=== PATIENT | male | born 1925 | race Caucasian/White ===

== ENCOUNTER 2016-12-17 16:27 | Inpatient (IN) | payer MEDICARE ==
[~2016-12-17] VITALS: Ht 198.1 cm; Wt 70.1 kg
[~2016-12-17 16:27] MED LIST: ASPI-618 PO; Acetaminophen PO; Blood Sugar Diagnostic VI; CYAN10006 IM; DEXT50DI8 IV; Docusate Sodium PO; INSU100V28 SQ; INSU3INS6 SQ; ISOS30TA6 PO; MAGN400T6 PO; MULT-70 PO; PANT40TA2 PO; PIOG30TA2 PO; TAMS-3 PO
[2016-12-17 18:24] LABS: *BILIRUBIN,URIN NEGATIVE (NEGATIVE); *BLOOD, URINE 3+ (NEGATIVE); *CLARITY,URINE CLEAR (CLEAR); *COLOR,URINE YELLOW (YELLOW); *KETONES,URINE NEGATIVE (NEGATIVE); *PROTEIN,URINE TRACE (NEGATIVE); *UROBILINOGEN,URINE 0.2 E.U./dl (NORMAL); LEUKOCYTE ESTERASE ,URINE NEGATIVE (NEGATIVE); NITRITE, URINE NEGATIVE (NEGATIVE); PH,URINE 5.5 (5.0-8.0); UGLUCOSE NEGATIVE (NEGATIVE)
[2016-12-17 18:26] LABS: POTASSIUM 4.5 mmol/L (3.5-5.1)
[2016-12-17 18:31] LABS: CREATININE 1.9 mg/dL (0.6-1.3)
[2016-12-17 18:34] LABS: LACTIC ACID 1.9 mmol/L (0.4-2.0)
[2016-12-17 18:39] LABS: ALBUMIN 3.8 g/dL (3.4-5.0); BILIRUBIN,DIRECT 0.3 mg/dL (0.0-0.2); BILIRUBIN,TOTAL 1.1 mg/dL (0.2-1.0); TOTAL PROTEIN, SERUM 7.1 g/dL (6.4-8.2)
[2016-12-17 18:43] LABS: TROPONIN I 10.14 ng/mL (0.00-0.056)
[2016-12-17] MEDS ORDERED: ASPIRIN 325 MG TABLET PO ONE (19:00)
[2016-12-17 19:02] LABS: BACTERIA,URINE NONE SEEN /HPF (NONE SEEN); SQUAMOUS EPITHELIAL CELL,UR FEW /HPF (NONE SEEN)
[2016-12-17 19:07] LABS: HEMATOCRIT 34.6 % (40.0-50.0); HEMOGLOBIN 11.7 g/dL (14.0-18.0); MEAN CORPUSCULAR HEMOGLOBIN 32.9 uug (27.0-31.0); MEAN CORPUSCULAR HGB CONC 34 g/dL (32.0-37.0); MEAN CORPUSCULAR VOLUME 97.4 fL (82.0-92.0); PLATELET COUNT (AUTO) 277 K/uL (150-450); RED BLOOD CELL COUNT(AUTO) 3.56 MIL/uL (4.70-6.10); WHITE BLOOD COUNT (AUTO) 19.8 K/uL (4.0-11.2)
[2016-12-17 19:08] LABS: LYMPHOCYTES # (AUTO) 1.1 K/uL (0.8-4.8); LYMPHOCYTES % (AUTO) 5.7 % (20.5-51.5); MONOCYTES # (AUTO) 1.2 K/uL (0.1-1.30); MONOCYTES % (AUTO) 6.1 % (0.0-11.0); NEUTROPHILS # (AUTO) 17.5 K/uL (1.8-8.9); NEUTROPHILS % (AUTO) 88.2 % (38.5-71.5)
[2016-12-17] MEDS ORDERED: ASPIRIN 325 MG TABLET ONE (19:09)
[2016-12-17 19:32] LABS: NEUTROPHILS % (MANUAL) 0 % (42-75)
[2016-12-17] MEDS ORDERED: HEPARIN SODIUM,PORCINE 5,000 UNITS/ML VIAL IV PRN (20:45)
[2016-12-17] MEDS ORDERED: HEPARIN SODIUM,PORCINE 5,000 UNITS/ML VIAL ONE (21:11)
[2016-12-17 21:19] LABS: *OCCULT BLOOD STOOL NEGATIVE (NEGATIVE)
[2016-12-17 22:45] VITALS: BP 122/56
[2016-12-17 23:00] VITALS: BP 94/66
[2016-12-17] MEDS ORDERED: ONDANSETRON 4 MG/2 ML VIAL IV PRN (23:30)
[2016-12-17] MEDS ORDERED: FUROSEMIDE 40 MG/4 ML VIAL IV ONE (23:30)
[2016-12-17] MEDS ORDERED: ZOLPIDEM 5 MG TABLET PO PRN (23:30)
[2016-12-17] MEDS: HEPARIN/D5W DRIP 500 ML IV PRN (23:30)
[2016-12-17] MEDS ORDERED: POTASSIUM CHLORIDE 20 MEQ TAB.PRT.SR PO ONE (23:30)
[2016-12-17] MEDS ORDERED: DEXTROSE 50% 50 ML DISP.SYRIN IV PRN (23:45)
[2016-12-18] VITALS (24 sets, daily range): BP systolic 90–154; BP diastolic 33–83
[2016-12-18] MEDS ORDERED: HEPARIN/D5W DRIP 500 ML ONE
[2016-12-18 05:19] LABS: ALBUMIN 3.7 g/dL (3.4-5.0); BILIRUBIN,TOTAL 1.1 mg/dL (0.2-1.0); MAGNESIUM 1.8 mg/dL (1.8-2.4); PHOSPHOROUS 3.9 mg/dL (2.5-4.9); POTASSIUM 4.5 mmol/L (3.5-5.1)
[2016-12-18 05:22] LABS: CREATININE 2.2 mg/dL (0.6-1.3)
[2016-12-18 05:31] LABS: THYROID STIMULATING HORMONE 4.605 mIU/mL (0.358-3.740)
[2016-12-18 06:54] LABS: HEMATOCRIT 34.4 % (40.0-50.0); HEMOGLOBIN 11.6 g/dL (14.0-18.0); LYMPHOCYTES % (AUTO) 8.7 % (20.5-51.5); MEAN CORPUSCULAR HEMOGLOBIN 33.2 uug (27.0-31.0); MEAN CORPUSCULAR HGB CONC 34 g/dL (32.0-37.0); MEAN CORPUSCULAR VOLUME 98.6 fL (82.0-92.0); NEUTROPHILS % (AUTO) 84.8 % (38.5-71.5); PLATELET COUNT (AUTO) 302 K/uL (150-450); RED BLOOD CELL COUNT(AUTO) 3.49 MIL/uL (4.70-6.10); RED CELL DISTRIBUTION WIDTH 13.2 % (11.5-14.5); WHITE BLOOD COUNT (AUTO) 17.2 K/uL (4.0-11.2)
[2016-12-18 06:55] LABS: BASOPHILS % (AUTO) 0.1 % (0.0-2.0); LYMPHOCYTES # (AUTO) 1.5 K/uL (0.8-4.8); MONOCYTES # (AUTO) 1.1 K/uL (0.1-1.30); MONOCYTES % (AUTO) 6.4 % (0.0-11.0); NEUTROPHILS # (AUTO) 14.6 K/uL (1.8-8.9)
[2016-12-18 07:32] LABS: BAND % (MANUAL) 7 % (0-10); LYMPHOCYTES % (MANUAL) 5 % (20-40); MONOCYTES % (MANUAL) 8 % (2-10); NEUTROPHILS % (MANUAL) 80 % (42-75)
[2016-12-18 07:33] LABS: PLATELET ESTIMATE ADEQUATE
[2016-12-18] MEDS: BLOOD SUGAR DIAGNOSTIC 1 EACH STRIP VI SCH ×4 (07:33→21:41)
[2016-12-18] MEDS ORDERED: HEPARIN SODIUM,PORCINE 5,000 UNITS/ML VIAL IV PRN (07:45)
[2016-12-18] MEDS: INSULIN REGULAR, HUMAN 300 UNIT/3 ML VIAL SQ PRN ×3 (07:53→17:27)
[2016-12-18] MEDS: CARVEDILOL 6.25 MG TABLET PO SCH ×2 (07:56→17:33)
[2016-12-18] MEDS: ISOSORBIDE MONONITRATE 30 MG TAB.SR.24H PO SCH (08:00)
[2016-12-18] MEDS: ASPIRIN 81 MG TAB.CHEW PO SCH (08:01)
[2016-12-18] MEDS: TAMSULOSIN HCL 0.4 MG CAP.SR.24H PO SCH ×2 (08:01→21:36)
[2016-12-18] MEDS: IV NS 1000 ML 1,000 ML IV PRN (08:03)
[2016-12-18] MEDS: MORPHINE SULFATE 2 MG/1 ML DISP.SYRIN IV PRN (18:03)
[2016-12-18] MEDS: MAGNESIUM OXIDE 400 MG TABLET PO SCH (21:36)
[2016-12-18] MEDS: SIMVASTATIN 20 MG TABLET PO SCH (21:36)
[2016-12-19] VITALS (25 sets, daily range): BP systolic 92–145; BP diastolic 21–74
[2016-12-19] MEDS: HEPARIN/D5W DRIP 500 ML IV PRN (00:28)
[2016-12-19] MEDS: ACETAMINOPHEN 325 MG TABLET PO PRN (01:09)
[2016-12-19] MEDS: IV NS 1000 ML 1,000 ML IV PRN ×2 (02:35→17:10)
[2016-12-19 05:45] LABS: BASOPHILS # (AUTO) 0.1 K/uL (0.0-0.2); BASOPHILS % (AUTO) 0.5 % (0.0-2.0); EOSINOPHILS # (AUTO) 0.2 K/uL (0.0-0.7); EOSINOPHILS % (AUTO) 1.7 % (0.0-7.0); HEMATOCRIT 31.8 % (40.0-50.0); HEMOGLOBIN 10.9 g/dL (14.0-18.0); LYMPHOCYTES # (AUTO) 1.7 K/uL (0.8-4.8); LYMPHOCYTES % (AUTO) 14.6 % (20.5-51.5); MEAN CORPUSCULAR HEMOGLOBIN 33.1 uug (27.0-31.0); MEAN CORPUSCULAR HGB CONC 34 g/dL (32.0-37.0); MEAN CORPUSCULAR VOLUME 96.6 fL (82.0-92.0); MONOCYTES % (AUTO) 8.3 % (0.0-11.0); NEUTROPHILS # (AUTO) 8.8 K/uL (1.8-8.9); NEUTROPHILS % (AUTO) 74.9 % (38.5-71.5); PLATELET COUNT (AUTO) 249 K/uL (150-450); RED BLOOD CELL COUNT(AUTO) 3.29 MIL/uL (4.70-6.10); RED CELL DISTRIBUTION WIDTH 12.4 % (11.5-14.5); WHITE BLOOD COUNT (AUTO) 11.8 K/uL (4.0-11.2)
[2016-12-19 05:55] LABS: CALCIUM 8.3 mg/dL (8.5-10.1); MAGNESIUM 1.7 mg/dL (1.8-2.4); PHOSPHOROUS 3.1 mg/dL (2.5-4.9); POTASSIUM 4.1 mmol/L (3.5-5.1)
[2016-12-19 05:57] LABS: CREATININE 1.8 mg/dL (0.6-1.3)
[2016-12-19] MEDS: BLOOD SUGAR DIAGNOSTIC 1 EACH STRIP VI SCH ×4 (07:26→21:33)
[2016-12-19] MEDS: INSULIN REGULAR, HUMAN 300 UNIT/3 ML VIAL SQ PRN ×2 (07:28→11:39)
[2016-12-19] MEDS: CARVEDILOL 6.25 MG TABLET PO SCH ×2 (08:11→18:22)
[2016-12-19] MEDS: ASPIRIN 81 MG TAB.CHEW PO SCH (08:11)
[2016-12-19] MEDS: ISOSORBIDE MONONITRATE 30 MG TAB.SR.24H PO SCH (08:11)
[2016-12-19] MEDS: TAMSULOSIN HCL 0.4 MG CAP.SR.24H PO SCH ×2 (08:11→21:37)
[2016-12-19] MEDS: MORPHINE SULFATE 2 MG/1 ML DISP.SYRIN IV PRN ×2 (08:54→19:00)
[2016-12-19] MEDS ORDERED: MAGNESIUM SULFATE/D5W 100 ML IV SCH (09:30)
[2016-12-19] MEDS: PANTOPRAZOLE SODIUM 40 MG VIAL IV SCH (11:17)
[2016-12-19 11:36] LABS: *CREATININE,URINE 137.9 mg/dL (30-125)
[2016-12-19] MEDS: CLOPIDOGREL 75 MG TABLET PO SCH (12:23)
[2016-12-19] MEDS: QUETIAPINE FUMARATE 25 MG TABLET PO PRN (17:19)
[2016-12-19] MEDS: MAGNESIUM OXIDE 400 MG TABLET PO SCH (21:37)
[2016-12-19] MEDS: SIMVASTATIN 20 MG TABLET PO SCH (21:37)
[2016-12-19] MEDS: LORAZEPAM 2 MG/1 ML VIAL IV PRN (21:37)
[2016-12-20] VITALS (15 sets, daily range): BP systolic 106–131; BP diastolic 48–94
[2016-12-20] MEDS: IV NS 1000 ML 1,000 ML IV PRN (04:52)
[2016-12-20 05:18] LABS: BASOPHILS % (AUTO) 0.6 % (0.0-2.0); EOSINOPHILS # (AUTO) 0.3 K/uL (0.0-0.7); HEMATOCRIT 28.9 % (40.0-50.0); HEMOGLOBIN 9.6 g/dL (14.0-18.0); LYMPHOCYTES # (AUTO) 1.4 K/uL (0.8-4.8); LYMPHOCYTES % (AUTO) 17.5 % (20.5-51.5); MEAN CORPUSCULAR HEMOGLOBIN 32.5 uug (27.0-31.0); MEAN CORPUSCULAR HGB CONC 33 g/dL (32.0-37.0); MEAN CORPUSCULAR VOLUME 97.6 fL (82.0-92.0); MONOCYTES # (AUTO) 0.9 K/uL (0.1-1.30); MONOCYTES % (AUTO) 11.3 % (0.0-11.0); NEUTROPHILS # (AUTO) 5.3 K/uL (1.8-8.9); NEUTROPHILS % (AUTO) 66.6 % (38.5-71.5); PLATELET COUNT (AUTO) 231 K/uL (150-450); RED BLOOD CELL COUNT(AUTO) 2.96 MIL/uL (4.70-6.10); RED CELL DISTRIBUTION WIDTH 12.5 % (11.5-14.5); WHITE BLOOD COUNT (AUTO) 7.9 K/uL (4.0-11.2)
[2016-12-20 05:21] LABS: ALBUMIN 2.8 g/dL (3.4-5.0); BILIRUBIN,TOTAL 0.9 mg/dL (0.2-1.0); CALCIUM 7.9 mg/dL (8.5-10.1); CREATININE 1.3 mg/dL (0.6-1.3); MAGNESIUM 1.9 mg/dL (1.8-2.4); PHOSPHOROUS 3.1 mg/dL (2.5-4.9); TOTAL PROTEIN, SERUM 5.7 g/dL (6.4-8.2)
[2016-12-20] MEDS: BLOOD SUGAR DIAGNOSTIC 1 EACH STRIP VI SCH ×4 (07:34→23:10)
[2016-12-20] MEDS: CLOPIDOGREL 75 MG TABLET PO SCH (08:56)
[2016-12-20] MEDS: CARVEDILOL 6.25 MG TABLET PO SCH ×2 (08:57→17:34)
[2016-12-20] MEDS: PANTOPRAZOLE SODIUM 40 MG VIAL IV SCH (08:57)
[2016-12-20] MEDS: TAMSULOSIN HCL 0.4 MG CAP.SR.24H PO SCH ×2 (08:57→21:28)
[2016-12-20] MEDS: ASPIRIN 81 MG TAB.CHEW PO SCH (08:59)
[2016-12-20] MEDS: MORPHINE SULFATE 2 MG/1 ML DISP.SYRIN IV PRN (15:21)
[2016-12-20] MEDS: QUETIAPINE FUMARATE 25 MG TABLET PO PRN (15:21)
[2016-12-20] MEDS: INSULIN REGULAR, HUMAN 300 UNIT/3 ML VIAL SQ PRN (16:43)
[2016-12-20] MEDS: MAGNESIUM OXIDE 400 MG TABLET PO SCH (21:28)
[2016-12-20] MEDS: ACETAMINOPHEN 325 MG TABLET PO PRN (21:28)
[2016-12-20] MEDS: SIMVASTATIN 20 MG TABLET PO SCH (21:28)
[2016-12-20] MEDS: INSULIN REGULAR, HUMAN 300 UNITS/3 ML VIAL SQ PRN (23:13)
[2016-12-21 00:57] VITALS: BP 121/60
[2016-12-21] MEDS: LORAZEPAM 2 MG/1 ML VIAL IV PRN ×2 (03:29→23:25)
[2016-12-21 04:00] VITALS: BP 137/68
[2016-12-21 06:12] LABS: BASOPHILS % (AUTO) 0.5 % (0.0-2.0); EOSINOPHILS # (AUTO) 0.3 K/uL (0.0-0.7); EOSINOPHILS % (AUTO) 4.4 % (0.0-7.0); HEMATOCRIT 33.8 % (40.0-50.0); HEMOGLOBIN 11.3 g/dL (14.0-18.0); LYMPHOCYTES # (AUTO) 1.3 K/uL (0.8-4.8); LYMPHOCYTES % (AUTO) 17.1 % (20.5-51.5); MEAN CORPUSCULAR HEMOGLOBIN 32.8 uug (27.0-31.0); MEAN CORPUSCULAR HGB CONC 34 g/dL (32.0-37.0); MONOCYTES # (AUTO) 0.9 K/uL (0.1-1.30); PLATELET COUNT (AUTO) 240 K/uL (150-450); RED BLOOD CELL COUNT(AUTO) 3.45 MIL/uL (4.70-6.10); RED CELL DISTRIBUTION WIDTH 12.6 % (11.5-14.5); WHITE BLOOD COUNT (AUTO) 7.5 K/uL (4.0-11.2)
[2016-12-21] MEDS: PANTOPRAZOLE SODIUM 40 MG VIAL IV SCH ×2 (06:24→08:53)
[2016-12-21 06:31] LABS: ALBUMIN 2.8 g/dL (3.4-5.0); BILIRUBIN,TOTAL 0.7 mg/dL (0.2-1.0); CALCIUM 8.1 mg/dL (8.5-10.1); MAGNESIUM 1.8 mg/dL (1.8-2.4); PHOSPHOROUS 2.8 mg/dL (2.5-4.9); POTASSIUM 3.8 mmol/L (3.5-5.1); TOTAL PROTEIN, SERUM 6.1 g/dL (6.4-8.2)
[2016-12-21] MEDS: BLOOD SUGAR DIAGNOSTIC 1 EACH STRIP VI SCH ×4 (06:36→20:15)
[2016-12-21] MEDS: CLOPIDOGREL 75 MG TABLET PO SCH (08:53)
[2016-12-21] MEDS: ASPIRIN EC 81 MG TABLET.DR PO SCH (08:54)
[2016-12-21] MEDS: TAMSULOSIN HCL 0.4 MG CAP.SR.24H PO SCH ×2 (08:54→20:58)
[2016-12-21] MEDS: CARVEDILOL 6.25 MG TABLET PO SCH ×2 (08:55→16:52)
[2016-12-21] MEDS: INSULIN REGULAR, HUMAN 300 UNIT/3 ML VIAL SQ PRN (11:58)
[2016-12-21 11:59] VITALS: BP 119/62
[2016-12-21 15:43] VITALS: BP 131/63
[2016-12-21 20:00] VITALS: BP 120/60
[2016-12-21] MEDS: MAGNESIUM OXIDE 400 MG TABLET PO SCH (20:58)
[2016-12-21] MEDS: SIMVASTATIN 20 MG TABLET PO SCH (20:58)
[2016-12-21] MEDS: INSULIN REGULAR, HUMAN 300 UNITS/3 ML VIAL SQ PRN (21:36)
[2016-12-22 00:01] VITALS: BP 126/64
[2016-12-22 04:00] VITALS: BP 127/59
[2016-12-22] MEDS: QUETIAPINE FUMARATE 25 MG TABLET PO PRN ×2 (04:01→15:39)
[2016-12-22 06:00] LABS: BASOPHILS % (AUTO) 0.5 % (0.0-2.0); EOSINOPHILS # (AUTO) 0.3 K/uL (0.0-0.7); EOSINOPHILS % (AUTO) 2.9 % (0.0-7.0); HEMATOCRIT 32.5 % (40.0-50.0); HEMOGLOBIN 10.8 g/dL (14.0-18.0); LYMPHOCYTES # (AUTO) 1.2 K/uL (0.8-4.8); LYMPHOCYTES % (AUTO) 12.7 % (20.5-51.5); MEAN CORPUSCULAR HEMOGLOBIN 32.6 uug (27.0-31.0); MEAN CORPUSCULAR HGB CONC 33 g/dL (32.0-37.0); MEAN CORPUSCULAR VOLUME 97.9 fL (82.0-92.0); MONOCYTES # (AUTO) 0.8 K/uL (0.1-1.30); MONOCYTES % (AUTO) 8.6 % (0.0-11.0); NEUTROPHILS # (AUTO) 6.8 K/uL (1.8-8.9); NEUTROPHILS % (AUTO) 75.3 % (38.5-71.5); PLATELET COUNT (AUTO) 262 K/uL (150-450); RED BLOOD CELL COUNT(AUTO) 3.32 MIL/uL (4.70-6.10); RED CELL DISTRIBUTION WIDTH 12.2 % (11.5-14.5); WHITE BLOOD COUNT (AUTO) 9.1 K/uL (4.0-11.2)
[2016-12-22 06:12] LABS: CALCIUM 8.4 mg/dL (8.5-10.1); MAGNESIUM 1.5 mg/dL (1.8-2.4); PHOSPHOROUS 2.3 mg/dL (2.5-4.9); POTASSIUM 3.7 mmol/L (3.5-5.1)
[2016-12-22] MEDS: PANTOPRAZOLE SODIUM 40 MG TABLET.DR PO SCH (07:15)
[2016-12-22] MEDS: BLOOD SUGAR DIAGNOSTIC 1 EACH STRIP VI SCH ×4 (07:42→21:45)
[2016-12-22] MEDS: CARVEDILOL 6.25 MG TABLET PO SCH ×2 (08:00→17:42)
[2016-12-22] MEDS: TAMSULOSIN HCL 0.4 MG CAP.SR.24H PO SCH ×2 (08:10→21:43)
[2016-12-22] MEDS: CLOPIDOGREL 75 MG TABLET PO SCH (08:10)
[2016-12-22] MEDS: CYANOCOBALAMIN 1,000 MCG TABLET PO SCH (08:11)
[2016-12-22] MEDS: ASPIRIN EC 81 MG TABLET.DR PO SCH (08:11)
[2016-12-22] MEDS ORDERED: MAGNESIUM SULFATE/D5W 100 ML IV SCH (08:15)
[2016-12-22] MEDS: POTASSIUM PHOSPHATE MM 5 MMOL in IV DEXTROSE 5% 100 ML IV SCH ×2 (10:30→13:21)
[2016-12-22 11:30] VITALS: BP 130/63
[2016-12-22] MEDS: INSULIN REGULAR, HUMAN 300 UNIT/3 ML VIAL SQ PRN ×2 (12:10→16:56)
[2016-12-22 16:37] VITALS: BP 128/48
[2016-12-22 19:00] VITALS: BP 144/70
[2016-12-22] MEDS: MAGNESIUM OXIDE 400 MG TABLET PO SCH (21:43)
[2016-12-22] MEDS: SIMVASTATIN 20 MG TABLET PO SCH (21:43)
[2016-12-22] MEDS: ACETAMINOPHEN 325 MG TABLET PO PRN (21:48)
[2016-12-23] MEDS: QUETIAPINE FUMARATE 25 MG TABLET PO PRN (00:09)
[2016-12-23] MEDS ORDERED: CARV6.252 PO (00:10)
[2016-12-23] MEDS ORDERED: SIMV20TA6 PO (00:10)
[2016-12-23] MEDS ORDERED: QUET25TA PO (00:10)
[2016-12-23] MEDS ORDERED: TAMSULOSIN HCL 0.4 MG CAP.SR.24H PO ONE (00:30)
[2016-12-23] MEDS ORDERED: TAMSULOSIN HCL 0.4 MG CAP.SR.24H ONE (00:34)
[2016-12-23 04:00] VITALS: BP 137/67
[2016-12-23] MEDS: BLOOD SUGAR DIAGNOSTIC 1 EACH STRIP VI SCH ×4 (05:48→20:20)
[2016-12-23] MEDS: PANTOPRAZOLE SODIUM 40 MG TABLET.DR PO SCH (06:20)
[2016-12-23] MEDS: CARVEDILOL 6.25 MG TABLET PO SCH ×2 (08:13→17:15)
[2016-12-23] MEDS: CYANOCOBALAMIN 1,000 MCG TABLET PO SCH (08:14)
[2016-12-23] MEDS: CLOPIDOGREL 75 MG TABLET PO SCH (08:14)
[2016-12-23] MEDS: TAMSULOSIN HCL 0.4 MG CAP.SR.24H PO SCH ×2 (08:14→20:42)
[2016-12-23] MEDS: ASPIRIN EC 81 MG TABLET.DR PO SCH (08:14)
[2016-12-23] MEDS: INSULIN REGULAR, HUMAN 300 UNIT/3 ML VIAL SQ PRN ×4 (08:16→23:51)
[2016-12-23 12:10] VITALS: BP 110/51
[2016-12-23 16:00] VITALS: BP 131/73
[2016-12-23 20:00] VITALS: BP 130/67
[2016-12-23] MEDS: MAGNESIUM OXIDE 400 MG TABLET PO SCH (20:42)
[2016-12-23] MEDS: SIMVASTATIN 20 MG TABLET PO SCH (20:42)
[2016-12-24 04:42] VITALS: BP 127/63
[2016-12-24] MEDS: PANTOPRAZOLE SODIUM 40 MG TABLET.DR PO SCH (06:04)
[2016-12-24] MEDS: BLOOD SUGAR DIAGNOSTIC 1 EACH STRIP VI SCH ×4 (06:04→21:22)
[2016-12-24] MEDS: CARVEDILOL 6.25 MG TABLET PO SCH ×2 (08:00→17:55)
[2016-12-24] MEDS: CLOPIDOGREL 75 MG TABLET PO SCH (08:29)
[2016-12-24] MEDS: CYANOCOBALAMIN 1,000 MCG TABLET PO SCH (08:29)
[2016-12-24] MEDS: ASPIRIN EC 81 MG TABLET.DR PO SCH (08:30)
[2016-12-24] MEDS: TAMSULOSIN HCL 0.4 MG CAP.SR.24H PO SCH ×2 (08:31→21:22)
[2016-12-24] MEDS: INSULIN REGULAR, HUMAN 300 UNIT/3 ML VIAL SQ PRN ×2 (08:45→12:37)
[2016-12-24 12:08] VITALS: BP 123/59
[2016-12-24 15:56] VITALS: BP 117/61
[2016-12-24 20:00] VITALS: BP 110/68
[2016-12-24] MEDS: MAGNESIUM OXIDE 400 MG TABLET PO SCH (21:22)
[2016-12-24] MEDS: SIMVASTATIN 20 MG TABLET PO SCH (21:22)
[2016-12-24] MEDS: INSULIN REGULAR, HUMAN 300 UNITS/3 ML VIAL SQ PRN (21:24)
[2016-12-25 04:00] VITALS: BP 111/63
[2016-12-25] MEDS: BLOOD SUGAR DIAGNOSTIC 1 EACH STRIP VI SCH ×4 (06:22→21:05)
[2016-12-25] MEDS: PANTOPRAZOLE SODIUM 40 MG TABLET.DR PO SCH (06:22)
[2016-12-25 06:48] LABS: BASOPHILS % (AUTO) 0.2 % (0.0-2.0); EOSINOPHILS # (AUTO) 0.3 K/uL (0.0-0.7); EOSINOPHILS % (AUTO) 2.2 % (0.0-7.0); HEMATOCRIT 31.8 % (40.0-50.0); HEMOGLOBIN 11.1 g/dL (14.0-18.0); LYMPHOCYTES # (AUTO) 1.2 K/uL (0.8-4.8); LYMPHOCYTES % (AUTO) 9.9 % (20.5-51.5); MEAN CORPUSCULAR HEMOGLOBIN 34.3 uug (27.0-31.0); MEAN CORPUSCULAR HGB CONC 35 g/dL (32.0-37.0); MEAN CORPUSCULAR VOLUME 97.8 fL (82.0-92.0); MONOCYTES # (AUTO) 1.3 K/uL (0.1-1.30); MONOCYTES % (AUTO) 11.4 % (0.0-11.0); NEUTROPHILS % (AUTO) 76.3 % (38.5-71.5); PLATELET COUNT (AUTO) 299 K/uL (150-450); RED BLOOD CELL COUNT(AUTO) 3.25 MIL/uL (4.70-6.10); RED CELL DISTRIBUTION WIDTH 12.2 % (11.5-14.5); WHITE BLOOD COUNT (AUTO) 11.8 K/uL (4.0-11.2)
[2016-12-25] MEDS ORDERED: Z GUARD REMEDY PASTE 57 GM TUBE TOP PRN (07:15)
[2016-12-25 07:40] LABS: ALBUMIN 2.9 g/dL (3.4-5.0); BILIRUBIN,TOTAL 0.7 mg/dL (0.2-1.0); CALCIUM 8.5 mg/dL (8.5-10.1); MAGNESIUM 1.5 mg/dL (1.8-2.4); PHOSPHOROUS 3.5 mg/dL (2.5-4.9); POTASSIUM 3.9 mmol/L (3.5-5.1); TOTAL PROTEIN, SERUM 6.3 g/dL (6.4-8.2)
[2016-12-25] MEDS: INSULIN REGULAR, HUMAN 300 UNIT/3 ML VIAL SQ PRN ×4 (07:42→20:54)
[2016-12-25] MEDS: CARVEDILOL 6.25 MG TABLET PO SCH ×2 (08:12→18:30)
[2016-12-25] MEDS: ASPIRIN EC 81 MG TABLET.DR PO SCH (08:12)
[2016-12-25] MEDS: TAMSULOSIN HCL 0.4 MG CAP.SR.24H PO SCH ×2 (08:13→20:23)
[2016-12-25] MEDS: CYANOCOBALAMIN 1,000 MCG TABLET PO SCH (08:13)
[2016-12-25] MEDS: CLOPIDOGREL 75 MG TABLET PO SCH (08:13)
[2016-12-25] MEDS ORDERED: MAGNESIUM OXIDE 400 MG TABLET PO ONE (09:30)
[2016-12-25 11:44] VITALS: BP 126/60
[2016-12-25 15:27] VITALS: BP 132/60
[2016-12-25 20:00] VITALS: BP 102/53
[2016-12-25] MEDS: MAGNESIUM OXIDE 400 MG TABLET PO SCH (20:23)
[2016-12-25] MEDS: SIMVASTATIN 20 MG TABLET PO SCH (20:23)
[2016-12-25] MEDS: Z GUARD REMEDY PASTE 57 GM TUBE TOP SCH (21:04)
[2016-12-26 05:08] VITALS: BP 107/54
[2016-12-26] MEDS: PANTOPRAZOLE SODIUM 40 MG TABLET.DR PO SCH (06:17)
[2016-12-26] MEDS: BLOOD SUGAR DIAGNOSTIC 1 EACH STRIP VI SCH ×4 (06:20→21:11)
[2016-12-26] MEDS: INSULIN REGULAR, HUMAN 300 UNIT/3 ML VIAL SQ PRN ×3 (07:47→16:39)
[2016-12-26] MEDS: ASPIRIN EC 81 MG TABLET.DR PO SCH (08:21)
[2016-12-26] MEDS: CLOPIDOGREL 75 MG TABLET PO SCH (08:21)
[2016-12-26] MEDS: CYANOCOBALAMIN 1,000 MCG TABLET PO SCH (08:21)
[2016-12-26] MEDS: TAMSULOSIN HCL 0.4 MG CAP.SR.24H PO SCH ×2 (08:22→20:59)
[2016-12-26] MEDS: CARVEDILOL 6.25 MG TABLET PO SCH ×2 (08:22→17:55)
[2016-12-26] MEDS: Z GUARD REMEDY PASTE 57 GM TUBE TOP SCH ×2 (08:23→21:18)
[2016-12-26 11:54] VITALS: BP 136/63
[2016-12-26 15:29] VITALS: BP 129/61
[2016-12-26 20:00] VITALS: BP 136/59
[2016-12-26] MEDS: MAGNESIUM OXIDE 400 MG TABLET PO SCH (20:59)
[2016-12-26] MEDS: SIMVASTATIN 20 MG TABLET PO SCH (20:59)
[2016-12-26] MEDS: INSULIN REGULAR, HUMAN 300 UNITS/3 ML VIAL SQ PRN (21:14)
[2016-12-27] VITALS (8 sets, daily range): BP systolic 97–134; BP diastolic 36–65
[2016-12-27] MEDS: PANTOPRAZOLE SODIUM 40 MG TABLET.DR PO SCH (06:09)
[2016-12-27] MEDS: BLOOD SUGAR DIAGNOSTIC 1 EACH STRIP VI SCH ×4 (06:09→21:38)
[2016-12-27] MEDS: TAMSULOSIN HCL 0.4 MG CAP.SR.24H PO SCH ×2 (09:00→21:38)
[2016-12-27] MEDS: ASPIRIN EC 81 MG TABLET.DR PO SCH (09:53)
[2016-12-27] MEDS: CLOPIDOGREL 75 MG TABLET PO SCH (09:53)
[2016-12-27] MEDS: CARVEDILOL 6.25 MG TABLET PO SCH ×2 (09:59→17:51)
[2016-12-27] MEDS: CYANOCOBALAMIN 1,000 MCG TABLET PO SCH (10:11)
[2016-12-27] MEDS: INSULIN REGULAR, HUMAN 300 UNIT/3 ML VIAL SQ PRN (12:05)
[2016-12-27] MEDS: Z GUARD REMEDY PASTE 57 GM TUBE TOP SCH ×2 (15:25→21:39)
[2016-12-27] MEDS: MAGNESIUM OXIDE 400 MG TABLET PO SCH (21:38)
[2016-12-27] MEDS: SIMVASTATIN 20 MG TABLET PO SCH (21:38)
[2016-12-28 05:52] VITALS: BP 102/58
[2016-12-28] MEDS: PANTOPRAZOLE SODIUM 40 MG TABLET.DR PO SCH (06:34)
[2016-12-28] MEDS: BLOOD SUGAR DIAGNOSTIC 1 EACH STRIP VI SCH ×3 (06:37→17:51)
[2016-12-28] MEDS: CARVEDILOL 6.25 MG TABLET PO SCH ×2 (08:00→18:00)
[2016-12-28] MEDS: TAMSULOSIN HCL 0.4 MG CAP.SR.24H PO SCH (08:54)
[2016-12-28] MEDS: CLOPIDOGREL 75 MG TABLET PO SCH (08:54)
[2016-12-28] MEDS: CYANOCOBALAMIN 1,000 MCG TABLET PO SCH (08:54)
[2016-12-28] MEDS: ASPIRIN EC 81 MG TABLET.DR PO SCH (08:54)
[2016-12-28] MEDS: Z GUARD REMEDY PASTE 57 GM TUBE TOP SCH (08:55)
[2016-12-28 11:54] VITALS: BP 109/56
[2016-12-28] MEDS: INSULIN REGULAR, HUMAN 300 UNIT/3 ML VIAL SQ PRN (12:35)
[2016-12-28 15:11] VITALS: BP 106/50
[2016-12-28 18:00] VITALS: BP 116/78
== END 2016-12-28 18:15 | DRG 280 ==
LOC: ER 16:29 → CCU 19:57 → TELE 12-20 19:48 → MED 12-23 00:01
PROVIDERS: ADMIT Internal Medicine; ATTEND Internal Medicine
DX: I21.4 Non-ST elevation (NSTEMI) myocardial infarction (principal); G93.40 Encephalopathy, unspecified; I50.33 Acute on chronic diastolic (congestive) heart failure; N17.0 Acute kidney failure with tubular necrosis; I13.0 Hypertensive heart and chronic kidney disease with heart failure and stage 1 through stage 4 chronic kidney disease, or unspecified chronic kidney disease; F05 Delirium due to known physiological condition; Z95.1 Presence of aortocoronary bypass graft; E11.22 Type 2 diabetes mellitus with diabetic chronic kidney disease; I25.10 Atherosclerotic heart disease of native coronary artery without angina pectoris; N18.9 Chronic kidney disease, unspecified; S40.012A Contusion of left shoulder, initial encounter; S40.011A Contusion of right shoulder, initial encounter; W19.XXXA Unspecified fall, initial encounter; Y92.002 Bathroom of unspecified non-institutional (private) residence as the place of occurrence of the external cause; S80.02XA Contusion of left knee, initial encounter; S80.01XA Contusion of right knee, initial encounter; N40.0 Benign prostatic hyperplasia without lower urinary tract symptoms; M19.90 Unspecified osteoarthritis, unspecified site; Z96.649 Presence of unspecified artificial hip joint; Z91.81 History of falling; F01.50 Vascular dementia, unspecified severity, without behavioral disturbance, psychotic disturbance, mood disturbance, and anxiety; Z86.73 Personal history of transient ischemic attack (TIA), and cerebral infarction without residual deficits; H35.30 Unspecified macular degeneration; F41.9 Anxiety disorder, unspecified; F32.9 Major depressive disorder, single episode, unspecified; Z98.890 Other specified postprocedural states; D53.9 Nutritional anemia, unspecified; Z74.09 Other reduced mobility; K80.20 Calculus of gallbladder without cholecystitis without obstruction; R74.0 Nonspecific elevation of levels of transaminase and lactic acid dehydrogenase [LDH]; E53.8 Deficiency of other specified B group vitamins
CPT/HCPCS: 36415; 51702; 70030-TC; 70450; 71010; 72125; 73030; 76705; 83550; 83605; 83735; 84100; 84300; 84443; 85025; 85651; 85730; 87040; 87086; 93005; 93307; 97001; 97003; 97110; 97116; 97530; 97535; A4663; C1758; C9113; J1644; J1815; J1940; J2060; J2270; J3475; J3490; J7030; J7050; J7060